=== PATIENT | female | born 1955 | race Caucasian/White ===

== ENCOUNTER 2016-04-17 11:02 | Emergency (ER) | payer MEDICAID ==
[~2016-04-17] VITALS: Ht 157.5 cm; Wt 72.6 kg
[2016-04-17 11:27] VITALS: BP 127/69
[2016-04-17] MEDS ORDERED: IBUPROFEN 400 MG TABLET ONE (11:57)
[2016-04-17] MEDS ORDERED: IBUPROFEN 400 MG TABLET PO ONE (12:00)
== END 2016-04-17 13:21 | disposition home or self-care (01) ==
LOC: ER 11:04
DX: S93.401A Sprain of unspecified ligament of right ankle, initial encounter (principal); K21.9 Gastro-esophageal reflux disease without esophagitis; X58.XXXA Exposure to other specified factors, initial encounter; Y93.89 Activity, other specified; Y92.89 Other specified places as the place of occurrence of the external cause; Y99.9 Unspecified external cause status
CPT/HCPCS: 73610; 99284; A4606; Z7610

== ENCOUNTER 2016-11-30 12:08 | Emergency (ER) | payer MEDICAID ==
[~2016-11-30] VITALS: Ht 157.5 cm; Wt 72.6 kg
--- NOTE | 2016-11-30 12:15 | NUR ---
AAOX3, CAME TO ER C/O COUGH AND CONGESTION X 1 MONTH, AFEBRILE. SKIN IS WARM AND DRY. RESP IS EVEN AND UNLABORED WITH NAD NOTED. AWAITING MD FOR EVAL.
[2016-11-30] MEDS ORDERED: ALBUTEROL FS 2.5 MG/0.5 ML VIAL.NEB NEB ONE (13:00)
[2016-11-30] MEDS ORDERED: ALBUTEROL FS 2.5 MG/0.5 ML VIAL.NEB ONE (13:07)
--- NOTE | 2016-11-30 13:10 | NUR ---
BREATHING TREATMENT AT
--- NOTE | 2016-11-30 14:44 | NUR ---
Patient discharged to home in stable condition. Written and verbal after care instructions given. Patient verbalizes understanding of instruction.
[2016-11-30 14:45] VITALS: BP 130/84
== END 2016-11-30 14:46 | disposition home or self-care (01) ==
LOC: ER 12:12
DX: J20.9 Acute bronchitis, unspecified (principal); K21.9 Gastro-esophageal reflux disease without esophagitis; Z98.890 Other specified postprocedural states
CPT/HCPCS: 71010; 94640; 99283; A4606; Z7610